=== PATIENT | male | born 1940 | race Caucasian/White ===

== ENCOUNTER 2022-04-02 22:44 | Emergency (ER) | payer MEDICARE ==
[~2022-04-02] VITALS: Ht 172.7 cm; Wt 77.1 kg
--- NOTE | 2022-04-02 22:55 | NUR ---
Dr. Guillen at bedside for MSE.
--- NOTE | 2022-04-02 23:00 | NUR ---
Pt medically cleared by Dr. Guillen.
--- NOTE | 2022-04-02 23:06 | NUR ---
Called Ashley Mcfadden [facility] for pt psych evaluation.
--- NOTE | 2022-04-02 23:40 | NUR ---
Ashley Mcfadden [facility] at bedside for psych eval.
--- NOTE | 2022-04-03 00:39 | NUR ---
Patient discharged to home in stable condition. Written and verbal after care instructions given. Patient verbalizes understanding of instructions. Stressed follow up or return to ER for worsening s/s. Patient out of ER with steady gait, no acute signs of distress, VSS, all belongings taken. Provided with community resources for counseling.
[2022-04-03 00:40] VITALS: BP 148/90
== END 2022-04-03 00:40 | disposition home or self-care (01) ==
LOC: ER 22:44
DX: F32.A Depression, unspecified (principal); R45.851 Suicidal ideations; R03.0 Elevated blood-pressure reading, without diagnosis of hypertension
CPT/HCPCS: A4663